=== PATIENT | female | born 1960 | race African-American/Black ===

== ENCOUNTER 2017-12-31 12:00 | Emergency (ER) | payer MEDICAID, OTHER ==
[~2017-12-31] VITALS: Ht 165.1 cm; Wt 94.3 kg
[~2017-12-31 12:00] MED LIST: AFRIN15 ML NASAL; ALBUTEROL SULF8.5 GM INH; AMOXICILLIN500 MG ORAL; AZITHROMYCIN250 MG ORAL; CYCLOBENZAPRINE10 MG ORAL; DIPHENHYDRAMINE25 M1 ORAL; LORATADINE10 M2 PO; METFORMIN HCL500 M1 ORAL; NKM; NORCO 5-325 TA1 EACH ORAL; PROMETHAZINE-C118 M1 ORAL; ROXICODONE30 M1 ORAL; TESSALON PERLE100 M2 ORAL; TRAMADOL HCL50 MG ORAL; TYLENOL EXTRA500 MG ORAL; TYLENOL325 MG ORAL; ZYRTEC10 MG ORAL
--- NOTE | 2017-12-31 12:23 | Emergency Room Report ---
History of Present Illness General Chief Complaint: Lower Extremity Injury Source: Patient Present Illness HPI 57-year-old female patient presents ER complaining of left toe pain. Reports that she was at the store when she stubbed her left toe. Reports has not taken any medication since that time. Reports pain in her left small toe. Reports mild discomfort with ambulation, states she is able to walk during this time. Denies headache or loss consciousness. Denies fever, chest pain, shortness of breath. Allergies: Coded Allergies: IBUPROFEN (Verified Allergy, Severe, 07/01/13) Patient History Past Medical History: see triage record Reviewed Nursing Documentation: PMH: Agreed; PSxH: Agreed Nursing Documentation-PMH Past Medical History: No History, Except For Review of Systems All Other Systems: negative except mentioned in HPI Physical Exam Vital Signs Date Time Temp Pulse Resp B/P (MAP) Pulse Ox O2 Delivery O2 Flow Rate FiO2 12/31/17 12:11 98.2 81 16 138/90 99 Room Air 98.2 Sp02 EP Interpretation: reviewed, normal General Appearance: well appearing, no apparent distress, alert, GCS 15, non- toxic Head: normocephalic, atraumatic Eyes: bilateral eye normal inspection, bilateral eye PERRL ENT: hearing grossly normal, normal pharynx, no angioedema, normal voice, uvula midline, moist mucus membranes Neck: full range of motion Respiratory: lungs clear, normal breath sounds, no rhonchi, no respiratory distress, no accessory muscle use, no wheezing, speaking full sentences Cardiovascular #1: regular rate, rhythm, no edema Cardiovascular #2: 2+ dorsalis pedis (R), 2+ dorsalis pedis (L) Musculoskeletal: back normal, digits/nails normal, gait/station normal, normal range of motion, no calf tenderness, Conner's Sign negative, other - NVI, sensation intact to light touch, no toe nail avulsion, no ecchymosis, tender - left small toe, dorusm of foot at MTP of 4th and fifth digit Neurologic: alert, oriented x3, responsive, motor strength/tone normal, sensory intact Psychiatric: mood/affect normal Skin: no rash Medical Decision Making PA Attestation Dr. Milton is my supervising Physician whom patient management has been discussed with. Diagnostic Impression: Primary Impression: Contusion of small toe of left foot ER Course Pt. presents to the ED c/o left pinky toe pain. Ddx considered but are not limited to fracture, sprain, strain, contusion, dislocation. No erythema, no warmth to touch, no fever, nontoxic appearing, low suspicion for septic joint. Vital signs: are WNL, pt. is afebrile Ordered X-ray and pain medication. ER COURSE Provided with pain medication. An X-ray of the left foot shows no acute fracture, degenerative changes per the preliminary reading. likely contusion causing pain symptoms. Post op shoe and amalia tape provided to toes was checked afterwards by me showing good alignment and support with distal neurovascular functioning intact. patient declined Crutches. Patient instructed on RICE method: rest, ice, compression, elevation. Patient instructed on rest, ice and heat. Patient instructed to be WBAT Contact information for orthopedic urgent care provided, follow-up with urgent care if unable to followup with primary care provider and get referral to orthopedic mechanic. Followup with primary care provider. Discuss referral to ortho/pain management/ PT as needed. Discuss further imaging with MRI/CT as needed. DISCHARGE: -Rx provided for Tylenol for pain symptoms. At this time pt. is stable for d/c to home. Patient is resting comfortably, in no acute distress, nontoxic appearing, talking without difficulty. Will provide printed patient care instructions, and any necessary prescriptions. Patient instructed to follow with primary care provider in 3 - 5 days and to request further follow-up as needed. Care plan and follow up instructions have been discussed with the patient prior to discharge. Take medications as directed. Patient questions asked and answered. Patient reports understanding and agreement to treatment plan. ER precautions given, patient instructed to return to ER immediately for any new or worsening of symptoms. - Please note that this Emergency Department Report was dictated using [id number] packaging supervisor technology software, occasionally this can lead to erroneous entry secondary to interpretation by the dictation equipment. Other X-Ray Diagnostic Results Other X-Ray Diagnostic Results : X-Ray ordered: left foot # of Views/Limited Vs Complete: 3 View Indication: Pain EP Interpretation: Yes PA Xray: Interpretation reviewed, by supervising MD, and agrees with findings. Interpretation: no dislocation, no soft tissue swelling, no fractures Impression: No acute disease JOSE MARIA Scribe Text Jose Hillman PA-C Last Vital Signs Date Time Temp Pulse Resp B/P (MAP) Pulse Ox O2 Delivery O2 Flow Rate FiO2 8/30/18 12:11 98.2 81 16 138/90 99 Room Air 98.2 Status: improved Disposition: HOME, SELF-CARE Condition: Stable Scripts Acetaminophen* (TYLENOL EXTRA STRENGTH*) 500 Mg Tablet 500 MG ORAL Q8H PRN for Prn Headache/Temp > 101, #30 TAB 0 Refills Prov: Dwain Hillman 12/31/17 Patient Instructions: Foot Contusion Additional Instructions: Patient instructed to follow up with primary care provider and discuss further referral to orthopedics. Patient instructed on RICE method: rest, ice, compression, elevation. Patient instructed to WBAT. Take medications as directed. Patient questions asked and answered. ER precautions given, patient instructed to return to ER immediately for any new or worsening of symptoms. Dwain Hillman Dec 31, 2017 12:23
[2017-12-31] MEDS ORDERED: Acetaminophen 500mg (ES) tab ORAL ONE (12:30)
[2017-12-31] MEDS ORDERED: TYLENOL EXTRA500 MG ORAL (13:44)
[2017-12-31 14:08] VITALS: BP 138/90
--- NOTE | 2017-12-31 14:58 | Diagnostic Imaging Report ---
Indication: Foot pain Technique: 3 views left foot Comparison: none Findings: There is slight lateral deviation of the second through fifth metatarsophalangeal joints no acute fractures. No dislocations. The joint spaces are preserved. There are small plantar and calcaneal spurs Impression: Findings as noted. No acute process
== END 2017-12-31 14:09 | disposition home or self-care (01) ==
LOC: EMR 13:01
DX: S90.122A Contusion of left lesser toe(s) without damage to nail, initial encounter (principal); W22.8XXA Striking against or struck by other objects, initial encounter; Y93.89 Activity, other specified; Y92.512 Supermarket, store or market as the place of occurrence of the external cause
CPT/HCPCS: 99283

== ENCOUNTER 2018-05-30 08:04 | Emergency (ER) | payer MEDICAID, OTHER ==
[~2018-05-30] VITALS: Ht 162.6 cm; Wt 98.0 kg
[2018-05-30 08:20] VITALS: BP 146/92
--- NOTE | 2018-05-30 08:20 | NUR ---
ED Nurse Note: PT WALKED IN TO ER TODAY FROM HOME. AOX4. PT C/O RIGHT UPPER EYELID SWELLING AND PAIN WHEN PALPATION X THIS AM. PT DENIES PAIN AT REST. PT DENIES CHANGES IN VISION OR ANY OCULAR DISCHARGE. VA OD: 20/30- VA OS: 20/30-
--- NOTE | 2018-05-30 08:42 | Emergency Room Report ---
History of Present Illness General Chief Complaint: Eye Problems Source: Patient Present Illness HPI Patient noted swelling in her right upper eyelid. She noted that this morning. It's not painful. There is no discharge and there is no change in vision. She denies any upper respiratory infection. No fevers or chills She denies diabetes or hypertension. No history of glaucoma. Her daughter is being seen for viral pharyngitis. Allergies: Coded Allergies: IBUPROFEN (Verified Allergy, Severe, 07/01/13) Patient History Past Medical History: see triage record Social History: Denies: smoking Social History Narrative with her daughter who has pharyngitis Last Menstrual Period: na Now: No Reviewed Nursing Documentation: PMH: Agreed; PSxH: Agreed Nursing Documentation-PMH Past Medical History: No History, Except For Review of Systems All Other Systems: negative except mentioned in HPI Physical Exam Vital Signs Date Time Temp Pulse Resp B/P (MAP) Pulse Ox O2 Delivery O2 Flow Rate FiO2 05/30/18 08:14 98.6 76 18 148/95 98 Room Air Sp02 EP Interpretation: reviewed, normal General Appearance: well appearing, no apparent distress, GCS 15 Head: normocephalic, atraumatic Eyes: right eye other - swelling R upper eye lid; bilateral eye normal inspection, bilateral eye PERRL, bilateral eye EOMI ENT: hearing grossly normal, normal voice Neck: full range of motion, supple Respiratory: no respiratory distress, speaking full sentences Cardiovascular #1: regular rate, rhythm Cardiovascular #2: 2+ radial (R) Gastrointestinal: normal inspection, overweight Musculoskeletal: digits/nails normal, gait/station normal, normal range of motion Neurologic: alert, oriented x3, normal gait, grossly normal Psychiatric: mood/affect normal Skin: no rash Medical Decision Making Diagnostic Impression: Primary Impression: Stye Qualified Codes: H00.011 - Hordeolum externum right upper eyelid ER Course Patient presents with swelling upper eyelid. By clinical exam this is a stye. Antibiotics are indicated. Patient is stable for outpatient observation and treatment. Last Vital Signs Date Time Temp Pulse Resp B/P (MAP) Pulse Ox O2 Delivery O2 Flow Rate FiO2 05/30/18 09:00 98.6 76 18 142/86 99 Room Air Status: improved Disposition: HOME, SELF-CARE Condition: Improved Scripts Sulfacetamide Sodium (BLEPH-10) 5 Ml Drops 2 DROP OP Q6HR, #5 ML Prov: Eh Delacruz MD 05/30/18 Eh Delacruz MD May 30, 2018 08:42
[2018-05-30] MEDS ORDERED: BLEPH-105 ML OP (08:44)
[2018-05-30 09:00] VITALS: BP 142/86
--- NOTE | 2018-05-30 09:01 | NUR ---
ED Nurse Note: PT SITTING PEACEFULLY IN BED IN NAD. AOX4. PRESCRIPTION AND DISCHARGE PAPERWORK EXPLAINED TO PT. PT VERBALIZES UNDERSTANDING AND ALL QUESTIONS ANSWERED. PRESCRIPTION AND DISCHARGE PAPERWORK GIVEN TO PT AND ID WRISTBAND REMOVED. PT WALKED OUT OF ER WITH STEADY GAIT AND ALL BELONGINGS.
== END 2018-05-30 09:00 | disposition home or self-care (01) ==
LOC: EMR 08:40
DX: H00.011 Hordeolum externum right upper eyelid (principal); Z88.6 Allergy status to analgesic agent
CPT/HCPCS: 99282

== ENCOUNTER 2018-12-02 13:28 | Emergency (ER) | payer OTHER ==
[~2018-12-02] VITALS: Ht 162.6 cm; Wt 87.1 kg
[~2018-12-02 13:28] MED LIST changes: +BLEPH-105 ML OP
[2018-12-02 14:05] VITALS: BP 125/70
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
[2018-12-02] MEDS ORDERED: LIDODERM700 M1 TOPIC (14:37)
[2018-12-02] MEDS ORDERED: CARISOPRODOL350 MG ORAL (14:37)
[2018-12-02 14:55] VITALS: BP 122/70
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
== END 2018-12-02 14:55 | disposition home or self-care (01) ==
LOC: EMR 14:30
DX: S16.1XXA Strain of muscle, fascia and tendon at neck level, initial encounter (principal); V43.52XA Car driver injured in collision with other type car in traffic accident, initial encounter; Y92.410 Unspecified street and highway as the place of occurrence of the external cause; M62.838 Other muscle spasm; Z88.6 Allergy status to analgesic agent
CPT/HCPCS: 99282